=== PATIENT | male | born 2000 | race Two or more races ===

== ENCOUNTER 2020-06-01 19:12 | Emergency (ER) | payer OTHER ==
[~2020-06-01] VITALS: Ht 185.4 cm; Wt 70.3 kg
== END 2020-06-01 22:53 | disposition home or self-care (01) ==
LOC: ER 19:12
DX: S46.812A Strain of other muscles, fascia and tendons at shoulder and upper arm level, left arm, initial encounter (principal); M12.512 Traumatic arthropathy, left shoulder; X50.0XXA Overexertion from strenuous movement or load, initial encounter; Y93.18 Activity, surfing, windsurfing and boogie boarding; Y92.832 Beach as the place of occurrence of the external cause; Y99.8 Other external cause status